=== PATIENT | female | born 1970 | race Caucasian/White ===

== ENCOUNTER 2018-05-10 19:48 | Emergency (ER) | payer SELFPAY ==
[~2018-05-10] VITALS: Ht 160 cm; Wt 95.7 kg
[2018-05-10 19:51] VITALS: Ht 160 cm; Wt 95.7 kg
[2018-05-10 20:58] LABS: microscopic required? NO
[2018-05-10 21:03] LABS: UA SPECIFIC GRAVITY 1.025 (1.005-1.035); urine erythrocyte NEGATIVE (NEGATIVE)
[2018-05-10 21:30] VITALS: BP 127/67
== END 2018-05-10 21:30 | disposition home or self-care (01) ==
LOC: ED 19:48
PROVIDERS: Emergency Medicine
DX: R50.9 Fever, unspecified (principal); M79.1 Myalgia; F17.210 Nicotine dependence, cigarettes, uncomplicated; Z88.5 Allergy status to narcotic agent
CPT/HCPCS: 86788; 86789

== ENCOUNTER 2019-09-03 13:01 | Emergency (ER) | payer OTHER ==
[~2019-09-03] VITALS: Ht 162.6 cm; Wt 86.2 kg
[2019-09-03 13:05] VITALS: BP 139/86; Ht 162.6 cm; Wt 86.2 kg
== END 2019-09-03 14:24 | disposition left against medical advice (07) ==
LOC: ED 13:01
DX: Z53.21 Procedure and treatment not carried out due to patient leaving prior to being seen by health care provider (principal)